=== PATIENT | female | born 1950 | race Hispanic/Latino ===

== ENCOUNTER 2018-10-28 08:31 | Outpatient (CLI) | payer MEDICARE, MEDICAID ==
--- NOTE | 2018-10-28 11:17 | RAD ---
RIGHT FOOT 3 VIEWS: DATE: 10/28/2018. COMPARISON: None. History Foot pain for 1 month. FINDINGS: There is enthesophyte formation at the insertion of the Achilles tendon and origin of the plantar apo neurosis. There is degenerative change noted at the 1st metarsophalangeal joint. No displaced fracture or evidence of dislocation. No radiopaque foreign body or subcutaneous gas. IMPRESSION: Degenerative changes as detailed above. No acute osseous abnormality. POS: [facility]
== END 2018-10-28 08:32 | disposition home or self-care (01) ==
LOC: BICMAMMO 08:31
PROVIDERS: ATTEND Family Medicine
DX: Z12.31 Encounter for screening mammogram for malignant neoplasm of breast (principal); M79.671 Pain in right foot; M19.071 Primary osteoarthritis, right ankle and foot
CPT/HCPCS: 77063; 77067

== ENCOUNTER 2019-01-12 18:20 | Emergency (ER) | payer MEDICARE, MEDICAID ==
[2019-01-12 19:56] LABS: #Eosinphils 0.4 thou/uL (0.0-0.7); #Lymphocytes 1.1 thou/uL (1.20-3.40); #Monocytes 0.5 thou/uL (0.11-0.59); %Basophils 0.3 % (0.0-1.0); %Eosinophils 6.4 % (0.0-10.0); %Lymphocytes 15.5 % (21.0-51.0); %Monocytes 6.5 % (0.0-10.0); %Neutrophils 71.4 % (42.0-75.0); Hemoglobin 14.2 g/dL (12.0-16.0); Mean Corpuscular HGB CONC 32.6 g/dL (32.0-36.0); Mean Platelet Volume 7.6 fL (7.4-10.4); Platelet Count 276 thou/uL (130-400); RBC Distribution Width 13.1 % (11.5-14.5); Red Blood Cell (RBC) Count 4.73 mill/uL (4.20-5.40)
[2019-01-12 20:10] LABS: ALT (SGPT) 24 U/L (8-55); AST (SGOT) 30 U/L (5-34); Albumin 4.3 g/dL (3.4-4.8); Alkaline Phosphatase 131 U/L (40-150); Anion Gap 14 mmol/L (10-20); BUN (Urea Nitrogen) 12 mg/dL (9.8-20.1); Bilirubin, Total 0.5 mg/dL (0.2-1.2); Calc. Creatinine Clearance 0 mL/min (70-130); Calcium 9.9 mg/dL (7.8-10.44); Carbon Dioxide 25 mmol/L (23-31); Chloride 104 mmol/L (98-107); Estimated GFR-MDRD 50; Globulin 3.6 g/dL (2.4-3.5); Glucose 175 mg/dL (80-115); Protein, Total 7.9 g/dL (6.0-8.3); Sodium 139 mmol/L (136-145)
--- NOTE | 2019-01-12 20:11 | RAD ---
CHEST TWO VIEWS: Comparison: 09-12-14 History: Cough. FINDINGS: Heart size is within normal limits. There are atherosclerotic changes of the aorta. The lungs are tere ar of infiltrates. There are arthritic changes of the spine. IMPRESSION: No active intrathoracic disease. POS: [facility]
[2019-01-12] MEDS ORDERED: Ondansetron PF 4 MG/2 ML Vial ONE (21:27)
[2019-01-12 21:45] LABS: Bilirubin Negative (Negative); Blood, Urine Negative (Negative); Clarity CLOUDY (Clear); Glucose, Urine (Dipstick) Negative (Negative); Leukocyte Large (Negative); Nitrite Negative (Negative); Protein, Urine (Dipstick) Negative (Neg-Trace); Specific Gravity, Urine 1.017 (1.002-1.036); pH, Urine 7.5 (5.0-9.0)
[2019-01-12 21:48] LABS: Bacteria/HPF 1+ HPF (None Seen); Hyaline Casts/LPF 4-6 HYALINE CAST LPF (0-3 Hyaline); Pathc Cast-AUWi Flag 0.43 (0-2.49); RBC/HPF 0-3 HPF (0-3)
[2019-01-12] MEDS ORDERED: Acetaminophen 500 MG TAB ONE (21:50)
== END 2019-01-12 23:17 | disposition home or self-care (01) ==
LOC: ERS 18:20
DX: N39.0 Urinary tract infection, site not specified (principal); E11.9 Type 2 diabetes mellitus without complications; I10 Essential (primary) hypertension
CPT/HCPCS: 36415; 71046; 80053; 81003; 81015; 85025; 87040; 87086; 87804; 93005; 96365; 96366; 96375; J1956; J2405

== ENCOUNTER 2019-06-22 17:32 | Emergency (ER) | payer MEDICARE, MEDICAID ==
[2019-06-22] MEDS ORDERED: Ketorolac Tromethamine 30 MG/ML VIAL ONE (17:49)
--- NOTE | 2019-06-22 18:15 | RAD ---
LEFT HIP: 06/22/19 Two views. HISTORY: Injury. Mild degenerative changes at the hip. No fracture or acute osseous abnormality identified. IMPRESSION: No acute fracture. POS: [facility]
== END 2019-06-22 18:45 | disposition home or self-care (01) ==
LOC: ERS 17:32
DX: M79.605 Pain in left leg (principal); M54.5 Low back pain; E11.9 Type 2 diabetes mellitus without complications; I10 Essential (primary) hypertension; W19.XXXA Unspecified fall, initial encounter
CPT/HCPCS: 96372; J1885

== ENCOUNTER 2020-09-26 09:26 | Emergency (ER) | payer MEDICARE, MEDICAID ==
[2020-09-26] MEDS ORDERED: Benzonatate 100 MG CAP ONE (10:15)
[2020-09-26 10:49] LABS: #Eosinphils 0.8 thou/uL (0.0-0.7); #Lymphocytes 1.5 thou/uL (1.20-3.40); #Monocytes 0.6 thou/uL (0.11-0.59); #Neutrophils 3.6 thou/uL (1.40-6.50); %Basophils 0.7 % (0.0-1.0); %Eosinophils 11.7 % (0.0-10.0); %Lymphocytes 23.3 % (21.0-51.0); %Monocytes 9.1 % (0.0-10.0); %Neutrophils 55.2 % (42.0-75.0); Hemoglobin 14.1 g/dL (12.0-16.0); Mean Corpuscular HGB CONC 33.2 g/dL (32.0-36.0); Mean Corpuscular Hemoglobin 30.3 pg (27.0-31.0); Mean Corpuscular Volume 91.3 fL (78.0-98.0); Mean Platelet Volume 7.7 fL (7.4-10.4); Platelet Count 245 thou/uL (130-400); RBC Distribution Width 13.7 % (11.5-14.5); Red Blood Cell (RBC) Count 4.65 mill/uL (4.20-5.40); White Blood Cell (WBC) Count 6.6 thou/uL (4.8-10.8)
--- NOTE | 2020-09-26 11:05 | RAD ---
Chest AP view INDICATION: Productive cough COMPARISON: September 26, 2001 FINDINGS: Lungs: The lungs are clear Cardiac silhouette: Stable mild cardiomegaly Pulmonary vasculature: Normal Pleural spaces: No pleural effusion or pneumothorax is demonstrated. Upper abdomen: No abnormality seen. Osseous structures: No acute osseous abnormality. 7 mm calcific density overlies the posterior right greater tuberosity. Additional findings: There is stable elevation of the right hemidiaphragm. IMPRESSION: No acute cardiopulmonary abnormality. Calcific tendinosis of the right shoulder.
[2020-09-26 11:14] LABS: ALT (SGPT) 31 U/L (8-55); AST (SGOT) 33 U/L (5-34); Albumin 4.2 g/dL (3.4-4.8); Alkaline Phosphatase 109 U/L (40-110); Anion Gap 12 mmol/L (10-20); BUN (Urea Nitrogen) 14 mg/dL (9.8-20.1); Bilirubin, Total 0.5 mg/dL (0.2-1.2); Calc. Creatinine Clearance 0 mL/min (70-130); Calcium 9.5 mg/dL (7.8-10.44); Carbon Dioxide 28 mmol/L (23-31); Chloride 105 mmol/L (98-107); Estimated GFR-MDRD 55; Glucose 190 mg/dL (80-115); Potassium 4.4 mmol/L (3.5-5.1); Protein, Total 7.2 g/dL (6.0-8.3); Sodium 141 mmol/L (136-145)
[2020-09-26 18:21] LABS: SARS-CoV-2 MS2 Positive; SARS-CoV-2 N Gene Negative; SARS-CoV-2 S Gene Negative; SARS-CoV-2 by NAA Not Detected (NotDetected); SARS-CoV-2 orf1ab Negative
== END 2020-09-26 12:00 | disposition left against medical advice (07) ==
LOC: ERS 09:26
DX: R05 Cough (principal); Z20.828 Contact with and (suspected) exposure to other viral communicable diseases; E11.9 Type 2 diabetes mellitus without complications; I10 Essential (primary) hypertension
CPT/HCPCS: 71045; 80053; 83880; 84484; 85025; 93005; 99284; U0003; 36415; 87635

== ENCOUNTER 2021-03-24 10:17 | Emergency (ER) | payer MEDICARE, MEDICAID ==
[2021-03-24] MEDS ORDERED: Lorazepam 2 MG/ML VIAL ONE (11:00)
[2021-03-24] MEDS ORDERED: Fentanyl 100 MCG/2 ML VIAL ONE (11:00)
[2021-03-24 11:32] LABS: #Basophils 0.1 thou/uL (0.0-0.2); #Eosinphils 0.5 thou/uL (0.0-0.7); #Lymphocytes 1.6 thou/uL (1.20-3.40); #Monocytes 0.6 thou/uL (0.11-0.59); #Neutrophils 2.8 thou/uL (1.40-6.50); %Basophils 1.1 % (0.0-1.0); %Eosinophils 8.6 % (0.0-10.0); %Lymphocytes 29.1 % (21.0-51.0); %Neutrophils 50.3 % (42.0-75.0); Hemoglobin 12.4 g/dL (12.0-16.0); Mean Corpuscular Hemoglobin 29.1 pg (27.0-31.0); Mean Corpuscular Volume 88.3 fL (78.0-98.0); Mean Platelet Volume 7.7 fL (7.4-10.4); Platelet Count 232 thou/uL (130-400); RBC Distribution Width 13.3 % (11.5-14.5); Red Blood Cell (RBC) Count 4.25 mill/uL (4.20-5.40); White Blood Cell (WBC) Count 5.5 thou/uL (4.8-10.8)
[2021-03-24 11:52] LABS: ALT (SGPT) 20 U/L (8-55); AST (SGOT) 23 U/L (5-34); Albumin 3.8 g/dL (3.4-4.8); Alkaline Phosphatase 97 U/L (40-110); Anion Gap 13 mmol/L (10-20); BUN (Urea Nitrogen) 13 mg/dL (9.8-20.1); Bilirubin, Total 0.4 mg/dL (0.2-1.2); Calc. Creatinine Clearance 0 mL/min (70-130); Calcium 8.9 mg/dL (7.8-10.44); Carbon Dioxide 28 mmol/L (23-31); Chloride 106 mmol/L (98-107); Glucose 143 mg/dL (83-110); Lipase 37 U/L (8-78); Potassium 3.8 mmol/L (3.5-5.1); Protein, Total 6.8 g/dL (5.8-8.1); Sodium 143 mmol/L (136-145)
== END 2021-03-24 12:30 | disposition home or self-care (01) ==
LOC: ERS 10:17
DX: M54.9 Dorsalgia, unspecified (principal); R07.9 Chest pain, unspecified; E78.5 Hyperlipidemia, unspecified; E11.9 Type 2 diabetes mellitus without complications; I10 Essential (primary) hypertension; Z87.19 Personal history of other diseases of the digestive system; X50.1XXA Overexertion from prolonged static or awkward postures, initial encounter
CPT/HCPCS: 36415; 71045; 74018; 80053; 83690; 84484; 85025; 93005; 96372; J2060; J3010

== ENCOUNTER 2021-05-20 14:42 | Outpatient (CLI) | payer MEDICARE, MEDICAID ==
[~2021-05-20 14:42] MED LIST: Iopamidol 370 76% 100 ML VIAL ONE
== END 2021-05-20 14:43 | disposition home or self-care (01) ==
LOC: BICCT 14:42
PROVIDERS: ATTEND Internal Medicine
DX: K57.30 Diverticulosis of large intestine without perforation or abscess without bleeding (principal); R10.11 Right upper quadrant pain; R10.12 Left upper quadrant pain; K40.90 Unilateral inguinal hernia, without obstruction or gangrene, not specified as recurrent; K44.9 Diaphragmatic hernia without obstruction or gangrene; E27.8 Other specified disorders of adrenal gland
CPT/HCPCS: 74177; 82565; Q9967

== ENCOUNTER 2021-09-18 11:19 | Emergency (ER) | payer MEDICARE, MEDICAID ==
[2021-09-18 12:38] LABS: #Eosinphils 0.2 thou/uL (0.0-0.7); #Lymphocytes 1.3 thou/uL (1.20-3.40); #Monocytes 0.5 thou/uL (0.11-0.59); #Neutrophils 2.9 thou/uL (1.40-6.50); %Basophils 0.4 % (0.0-1.0); %Lymphocytes 25.9 % (21.0-51.0); %Monocytes 10.4 % (0.0-10.0); %Neutrophils 59.4 % (42.0-75.0); Hemoglobin 13.8 g/dL (12.0-16.0); Mean Corpuscular HGB CONC 34.3 g/dL (32.0-36.0); Mean Corpuscular Hemoglobin 30.6 pg (27.0-31.0); Mean Corpuscular Volume 89.4 fL (78.0-98.0); Mean Platelet Volume 7.7 fL (7.4-10.4); Platelet Count 207 thou/uL (130-400); RBC Distribution Width 14.8 % (11.5-14.5); Red Blood Cell (RBC) Count 4.51 mill/uL (4.20-5.40); White Blood Cell (WBC) Count 4.8 thou/uL (4.8-10.8)
[2021-09-18 12:58] LABS: ALT (SGPT) 23 U/L (8-55); AST (SGOT) 17 U/L (5-34); Albumin 3.7 g/dL (3.4-4.8); Alkaline Phosphatase 88 U/L (40-110); Anion Gap 13 mmol/L (10-20); BUN (Urea Nitrogen) 10 mg/dL (9.8-20.1); Bilirubin, Total 0.7 mg/dL (0.2-1.2); Calc. Creatinine Clearance 0 mL/min (70-130); Calcium 8.9 mg/dL (7.8-10.44); Carbon Dioxide 27 mmol/L (23-31); Chloride 106 mmol/L (98-107); Globulin 2.6 g/dL (2.4-3.5); Glucose 245 mg/dL (83-110); Potassium 3.9 mmol/L (3.5-5.1); Protein, Total 6.3 g/dL (5.8-8.1); Sodium 142 mmol/L (136-145)
[2021-09-18] MEDS ORDERED: Acetaminophen 325 MG TAB ONE (13:30)
[2021-09-18] MEDS ORDERED: Ketorolac Tromethamine 30 MG/ML VIAL ONE (16:23)
== END 2021-09-18 16:29 | disposition home or self-care (01) ==
LOC: ERS 11:19
DX: S16.1XXA Strain of muscle, fascia and tendon at neck level, initial encounter (principal); R51.9 Headache, unspecified; E11.9 Type 2 diabetes mellitus without complications; I10 Essential (primary) hypertension; E03.9 Hypothyroidism, unspecified; Z79.84 Long term (current) use of oral hypoglycemic drugs; X58.XXXA Exposure to other specified factors, initial encounter
CPT/HCPCS: 70496; 70498; 71045; 80053; 84484; 85025; 93005; J1885

== ENCOUNTER 2021-11-24 18:53 | Emergency (ER) | payer MEDICARE, MEDICAID ==
[2021-11-24] MEDS ORDERED: Ketorolac Tromethamine 30 MG/ML VIAL ONE (19:32)
[2021-11-24] MEDS ORDERED: Morphine 4 MG/ML VIAL ONE (19:32)
[2021-11-24 20:00] LABS: #Eosinphils 0.2 thou/uL (0.0-0.7); #Lymphocytes 1.1 thou/uL (1.20-3.40); #Monocytes 0.5 thou/uL (0.11-0.59); #Neutrophils 4.1 thou/uL (1.40-6.50); %Basophils 0.3 % (0.0-1.0); %Eosinophils 3.2 % (0.0-10.0); %Lymphocytes 18.8 % (21.0-51.0); %Monocytes 8.9 % (0.0-10.0); %Neutrophils 68.8 % (42.0-75.0); Hemoglobin 14.3 g/dL (12.0-16.0); Mean Corpuscular HGB CONC 33.8 g/dL (32.0-36.0); Mean Corpuscular Hemoglobin 30.7 pg (27.0-31.0); Mean Platelet Volume 7.8 fL (7.4-10.4); Platelet Count 305 thou/uL (130-400); RBC Distribution Width 12.6 % (11.5-14.5); Red Blood Cell (RBC) Count 4.66 mill/uL (4.20-5.40)
[2021-11-24 20:22] LABS: ALT (SGPT) 23 U/L (8-55); AST (SGOT) 24 U/L (5-34); Albumin 4.3 g/dL (3.4-4.8); Alkaline Phosphatase 87 U/L (40-110); Anion Gap 14 mmol/L (10-20); BUN (Urea Nitrogen) 7 mg/dL (9.8-20.1); Bilirubin, Total 0.5 mg/dL (0.2-1.2); Calc. Creatinine Clearance 0 mL/min (70-130); Calcium 9.7 mg/dL (7.8-10.44); Carbon Dioxide 27 mmol/L (23-31); Chloride 105 mmol/L (98-107); Globulin 2.9 g/dL (2.4-3.5); Glucose 153 mg/dL (83-110); Potassium 4.1 mmol/L (3.5-5.1); Protein, Total 7.2 g/dL (5.8-8.1); Sodium 142 mmol/L (136-145)
== END 2021-11-24 21:32 | disposition home or self-care (01) ==
LOC: ERS 18:53
DX: S20.212A Contusion of left front wall of thorax, initial encounter (principal); W01.10XA Fall on same level from slipping, tripping and stumbling with subsequent striking against unspecified object, initial encounter; I10 Essential (primary) hypertension; E03.9 Hypothyroidism, unspecified; E11.9 Type 2 diabetes mellitus without complications
CPT/HCPCS: 36415; 71045; 71250; 80053; 83880; 84484; 85025; 93005; 96374; 96375; J1885; J2270

== ENCOUNTER 2021-12-05 10:36 | Outpatient (CLI) | payer MEDICARE, MEDICAID | END 2021-12-05 10:37 | disposition home or self-care (01) | LOC: NM 10:36 | PROVIDERS: ATTEND Internal Medicine | DX: R10.10 Upper abdominal pain, unspecified (principal); R11.0 Nausea | CPT/HCPCS: 78226; A9537 ==

== ENCOUNTER 2022-03-31 09:20 | Outpatient (CLI) | payer MEDICARE, MEDICAID | END 2022-03-31 09:21 | disposition home or self-care (01) | LOC: BICRAD 09:20 | PROVIDERS: ATTEND Family Medicine | DX: M51.36 Other intervertebral disc degeneration, lumbar region (principal); M47.814 Spondylosis without myelopathy or radiculopathy, thoracic region; I70.90 Unspecified atherosclerosis | CPT/HCPCS: 72072; 72100 ==

== ENCOUNTER 2022-04-03 08:45 | Outpatient (CLI) | payer MEDICARE, MEDICAID | END 2022-04-03 08:46 | disposition home or self-care (01) | LOC: BICMAMMO 08:45 | PROVIDERS: ATTEND Family Medicine | DX: M85.89 Other specified disorders of bone density and structure, multiple sites (principal) | CPT/HCPCS: 77080 ==

== ENCOUNTER 2022-04-22 08:59 | Outpatient (CLI) | payer MEDICARE, OTHER | END 2022-04-22 09:00 | disposition home or self-care (01) | LOC: CT 08:59 | PROVIDERS: ATTEND Physician Assistant Medical | DX: R10.10 Upper abdominal pain, unspecified (principal); K55.1 Chronic vascular disorders of intestine; I70.1 Atherosclerosis of renal artery; E27.8 Other specified disorders of adrenal gland; K43.9 Ventral hernia without obstruction or gangrene | CPT/HCPCS: 74174; 82565 ==

== ENCOUNTER 2023-03-20 17:36 | Emergency (ER) | payer MEDICARE, OTHER ==
[~2023-03-20 17:36] MED LIST changes: -Iopamidol 370 76% 100 ML VIAL ONE; +Iopamidol-370 76% 500 ML MDV (1 ML CHARGE) ONE
[2023-03-20] MEDS ORDERED: fentaNYL 50 mcg/mL 1 mL Vial ONE (18:57)
[2023-03-20] MEDS ORDERED: Ondansetron PF 4 MG/2 ML Vial ONE (18:57)
[2023-03-20 19:09] LABS: #Eosinphils 0.4 thou/uL (0.0-0.7); #Lymphocytes 0.9 thou/uL (1.20-3.40); #Monocytes 0.4 thou/uL (0.11-0.59); #Neutrophils 8.8 thou/uL (1.40-6.50); %Basophils 0.1 % (0.0-1.0); %Eosinophils 4.1 % (0.0-10.0); %Lymphocytes 8.4 % (21.0-51.0); %Neutrophils 83.4 % (42.0-75.0); Hemoglobin 13.1 g/dL (12.0-16.0); Mean Corpuscular HGB CONC 34.8 g/dL (32.0-36.0); Mean Corpuscular Volume 89.1 fl (78.0-98.0); Mean Platelet Volume 7.7 fL (7.4-10.4); Platelet Count 242 10x3/uL (130-400); RBC Distribution Width 13.2 % (11.5-14.5); Red Blood Cell (RBC) Count 4.21 mill/uL (4.20-5.40); White Blood Cell (WBC) Count 10.6 10x3/uL (4.8-10.8)
[2023-03-20 19:25] LABS: INR-International Normal Ratio 1.1; PTT 31.4 sec (22.9-36.1); Prothrombin Time 14.3 sec (12.0-14.7)
[2023-03-20 19:32] LABS: ALT (SGPT) 30 U/L (8-55); AST (SGOT) 43 U/L (5-34); Albumin 4.1 g/dL (3.4-4.8); Alkaline Phosphatase 168 U/L (40-110); Anion Gap 13 mmol/L (10-20); BUN (Urea Nitrogen) 12 mg/dL (9.8-20.1); Bilirubin, Total 0.4 mg/dL (0.2-1.2); CK (CPK) 140 U/L (29-168); Calc. Creatinine Clearance 0 mL/min (70-130); Calcium 9.2 mg/dL (7.8-10.44); Carbon Dioxide 25 mmol/L (23-31); Chloride 106 mmol/L (98-107); Estimated GFR 70; Globulin 3.3 g/dL (2.4-3.5); Glucose 167 mg/dL (83-110); Lipase 34 U/L (8-78); Potassium 3.7 mmol/L (3.5-5.1); Protein, Total 7.4 g/dL (5.8-8.1); Sodium 140 mmol/L (136-145)
[2023-03-20] MEDS ORDERED: Morphine 4 MG/ML VIAL ONE (22:38)
[2023-03-21] MEDS ORDERED: Morphine 4 MG/ML VIAL ONE (01:51)
[2023-03-21] MEDS ORDERED: Ketorolac Tromethamine 30 MG/ML VIAL ONE (04:11)
[2023-03-21] MEDS ORDERED: LORazepam 2 MG/ML SYR.(CARPUJECT) ONE (04:11)
== END 2023-03-21 05:06 ==
LOC: ERS 17:36
DX: S32.021A Stable burst fracture of second lumbar vertebra, initial encounter for closed fracture (principal); E78.5 Hyperlipidemia, unspecified; E11.9 Type 2 diabetes mellitus without complications; I10 Essential (primary) hypertension; E03.9 Hypothyroidism, unspecified; Z79.84 Long term (current) use of oral hypoglycemic drugs; V89.2XXA Person injured in unspecified motor-vehicle accident, traffic, initial encounter
CPT/HCPCS: 70450; 71260; 72125; 74177; 80053; 82550; 83690; 85025; 85610; 85730; 86850; 86900; 86901; 96374; 96375; 96376; 99285; J2060; J3010; 36415; J1885; J2270; J2405; Q9967

== ENCOUNTER 2023-08-30 10:45 | Outpatient (CLI) | payer MEDICARE, MEDICAID | END 2023-08-30 10:46 | disposition home or self-care (01) | LOC: BICRAD 10:45 | PROVIDERS: ATTEND Neurological Surgery | DX: S32.001D Stable burst fracture of unspecified lumbar vertebra, subsequent encounter for fracture with routine healing (principal) | CPT/HCPCS: 72100 ==

== ENCOUNTER 2023-10-12 11:01 | Outpatient (CLI) | payer OTHER, MEDICAID | END 2023-10-12 11:02 | disposition home or self-care (01) | LOC: MRI 11:01 | PROVIDERS: ATTEND Neurological Surgery | DX: S32.001D Stable burst fracture of unspecified lumbar vertebra, subsequent encounter for fracture with routine healing (principal); S32.021D Stable burst fracture of second lumbar vertebra, subsequent encounter for fracture with routine healing; M48.00 Spinal stenosis, site unspecified; G58.8 Other specified mononeuropathies; M47.816 Spondylosis without myelopathy or radiculopathy, lumbar region | CPT/HCPCS: 72148 ==

== ENCOUNTER 2024-09-02 17:52 | Emergency (ER) | payer OTHER ==
[2024-09-02] MEDS ORDERED: Dexamethasone 10 MG/ML VIAL ONE (18:16)
[2024-09-02] MEDS ORDERED: Ibuprofen 200 MG TAB ONE (18:16)
[2024-09-02] MEDS ORDERED: traMADol HCl 50 MG TAB ONE (18:17)
== END 2024-09-02 18:31 | disposition home or self-care (01) ==
LOC: ERS 17:52
DX: S00.03XA Contusion of scalp, initial encounter (principal); W19.XXXA Unspecified fall, initial encounter
CPT/HCPCS: 99282; J1100